=== PATIENT | male | born 1945 | race Caucasian/White ===

== ENCOUNTER → 2018-09-14 | Outpatient (CLI) | payer OTHER ==
--- NOTE | 2018-09-14 17:16 | RAD ---
LUMBAR SPINE 2-3V History: low back pain Comparison: None. Findings: 3 views lumbar spine are submitted. There is mild lumbar levoscoliosis. Lumbar vertebral body AP alignment is overall maintained. There is very mild superior L5 endplate concavity of uncertain chronicity. There is facet degenerative change greater inferiorly of the lumbar spine. There is multilevel at least mild degenerative disc disease greatest L2-3 through L4-5. Impression: 1. There is mild superior L5 endplate concavity of uncertain chronicity. MRI would more accurately evaluate for marrow edema if suspicion for recent compression injury. There is multilevel mild lumbar degenerative disc disease. There is multilevel lumbar facet facet degenerative change. Electronically signed by: Tim Magana MD (09/14/2018 5:13 PM) [facility] [id number]
== END | disposition home or self-care (01) ==
LOC: PMG 14:59
PROVIDERS: ATTEND Family Medicine
DX: M51.36 Other intervertebral disc degeneration, lumbar region (principal); M47.816 Spondylosis without myelopathy or radiculopathy, lumbar region; M41.86 Other forms of scoliosis, lumbar region
CPT/HCPCS: 72100

== ENCOUNTER → 2020-07-17 | Outpatient (CLI) | payer MEDICARE ==
--- NOTE | 2020-07-17 12:59 | RAD ---
XR HIP_LT 2-3 VIEWS History: Left hip pain. Comparison: None. Technique: AP and lateral views of the left hip. Findings: There is no evidence for fracture. Alignment is normal. No destructive osseous lesions are seen. Mild degenerative changes with femoral acetabular osteophytes. There are few pelvic phleboliths. Soft tissues are otherwise unremarkable. Impression: 1. Mild degenerative changes of left hip without acute osseous abnormality. Electronically signed by: Vishal Terry MD (07/17/2020 12:57 PM) [facility]
== END ==
LOC: PMG 12:15
PROVIDERS: ATTEND Family Medicine
DX: M16.12 Unilateral primary osteoarthritis, left hip (principal); M25.752 Osteophyte, left hip; I87.8 Other specified disorders of veins
CPT/HCPCS: 73502